=== PATIENT | female | born 1950 | race Caucasian/White ===

== ENCOUNTER → 2020-02-01 09:39 | Outpatient (CLI) | payer MEDICARE, OTHER, SELFPAY ==
[2020-02-02 09:36] LABS: COVID19 Sendout Not Detected (Not Detect)
== END ==
PROVIDERS: Visit Provider Physician Assistant
DX: Z11.59 Encounter for screening for other viral diseases (principal)
CPT/HCPCS: 87635

== ENCOUNTER 2020-02-04 06:14 | Day surgery (SDC) | payer MEDICARE, OTHER, SELFPAY ==
[2020-01-31 08:05] VITALS: BMI 22.2
[2020-02-04] VITALS (10 sets, daily range): BP systolic 126–163; BP diastolic 46–77; PULSE 56–72; RESP 12–48; TEMP 36.1–37.3; O2SAT 94–100; BMI 21.9
[2020-02-04] MEDS: LACTATED RINGERS 1,000 ML 42 ML IV (07:30)
--- NOTE | 2020-02-04 07:32 | PM.PREOP ---
Pre-operative Note COVID-19 COVID-19 status: Negative Result date/Date tested (Pos, Neg/Pending): 02/01/20 Interval Note History & Physical reviewed/Exam performed by Physician: Yes Changes to H&P: No
[2020-02-04] MEDS: CEFAZOLIN 2 GM/100 ML FROZ.PIGGY IV (08:00)
--- NOTE | 2020-02-04 08:17 | SUR.OPER ---
Lithotomy on padded OR bed, head on pillow, arms secured on padded arm boards at <90 degrees abduction. Legs secured in padded yellow fins stirrups.
[2020-02-04] MEDS: BUPIVACAINE 0.5% W/ EPI (PF) 30 ML VIAL INJ (08:37)
--- NOTE | 2020-02-04 08:54 | P.OP_ITS ---
Operative Date/Time/Diagnoses Date of procedure: 02/04/20 Time of procedure: 08:54 Pre-op diagnosis: Symptomatic vaginal wall prolapse post hysterectomy Post-op diagnosis: same Procedure & Clinicians Procedure: Anterior and posterior colporrhaphy Same procedure as scheduled: Yes Indications: Symptomatic vaginal wall prolapse post hysterectomy Surgeon: Eladia Olmedo [employer] Driver: Karen Mata Click Yes if Unassisted: No Anesthesia Type: General Operative Notes Findings: First-degree cystocele with second-degree rectocele. Vaginal cuff well supported Closure Type: primary Specimen(s): none sent Applied: catheter (Baltazar) and other (Vaginal packing) Estimated Blood Loss (mL): 20 Blood products transfused: none Procedure in detail: Patient was brought to the operating room where she underwent general anesthesia. She was placed in low Yellofin stirrups and prepped and draped in the usual sterile fashion. Warming was in place. 2 g of Ancef were in prior to beginning of the case. Pulsatile stockings were in place and functional. A check system was reviewed with the staff in the room prior to beginning the case. A Baltazar catheter was placed. The area of the cystocele and the rectocele was injected with a dilute solution of Marcaine with epinephrine. Incision was made over the cystocele with a scalpel. Dissection was undertaken laterally with sharp and blunt dissection. Plicating sutures of 0 Vicryl suture were placed. A small amount of vaginal tissue was removed. The vaginal incision was repaired with running 2 0 Vicryl suture. An incision was made over the rectocele with a scalpel. Dissection was undertaken laterally.. Plication sutures with 0 Vicryl were placed. A small amount of vaginal tissue was removed. The incision was closed with 2 0 Vicryl suture. Vaginal packing was placed. Patient went to recovery room in good condition. Complications: none Post-operative Condition: stable Disposition: Acute Care (Outpatient with bed) Plan for aftercare: Vaginal packing and Baltazar will be left in until a.m.. She will go home after postvoid residual in the morning
[2020-02-04] MEDS: KETOROLAC 30 MG/ML VIAL 15 MG IV (09:25)
[2020-02-04] MEDS: OXYCODONE/ACETAMINOPHEN 5/325 TABLET 1 TAB PO (09:27)
[2020-02-04] MEDS: LACTATED RINGERS 1,000 ML 100 ML IV (11:30)
--- NOTE | 2020-02-04 17:08 | PM.DS.1 ---
History of Present Illness History of Present Illness Date Patient Seen: 02/04/20 Time Patient Seen: 17:08 Date of Onset of Symptoms: 02/04/20 Chief complaint: OPB Narrative: Patient underwent an anterior and posterior repair today for vaginal wall prolapse post hysterectomy Discharge Providers Provider Discharge Date: 02/04/20 Primary care physician: Juan Antonio Zelaya DO Discharge provider: Eladia Olmedo MD Summary Hospital Course Discharge Diagnosis: Vaginal wall prolapse post hysterectomy status post anterior and posterior colporrhaphy Hospital Course: Patient had vaginal packing and a Baltazar catheter placed after surgery. These were removed after 6 hours. She has minimal bleeding. No pain. She passed her bladder trial. Status at Discharge Cognitive/behavioral status at discharge: oriented Functional status at discharge: independent ambulation Overall status at discharge: patient is progressing back to baseline Time Spent with Patient Time spent: Less than 30 minutes Exam Vital Signs (past 8 hours): - 02/04/20 09:30 02/04/20 10:00 02/04/20 10:30 Temperature 96.9 F L 96.9 F L 96.9 F L Pulse Rate 63 56 L 60 Respiratory Rate 16 16 16 Blood Pressure 163/71 H 140/61 127/64 Pulse Oximetry 94 100 100 02/04/20 11:30 02/04/20 12:30 02/04/20 15:45 Temperature 97.0 F L 97.0 F L 97.3 F L Pulse Rate 56 L 62 64 Respiratory Rate 16 16 16 Blood Pressure 126/53 L 128/66 135/62 Pulse Oximetry 100 100 100 Oxygen Delivery Method Room Air Oxygen Flow Rate 0 Narrative Exam Narrative: Abdomen is soft, nontender. Vaginal packing had minimal blood on it. Extremities without edema and nontender. Discharge Assessment & Plan Assessment and Plan Assessment: Patient is postoperative anterior and posterior colporrhaphy who was able to passed her bladder trial after packing and Baltazar removed. Plan of Treatment: Patient is discharged home to be followed up in 2 weeks. Patient is to call for fever, problems urinating, pain she is concerned about. Discharge Plan Discharge Plan Patient Disposition: Home Discharge Med Rec/Prescriptions Prescriptions: Continued multivitamin [Multiple Vitamins] 1 EACH tablet 1 tab PO QDAY Qty: 0 RF: 0 aspirin 81 MG tablet,chewable 81 mg PO QDAY Qty: 0 RF: 0 ascorbic acid (vitamin C) 500 MG tablet 1,000 mg PO QDAY Qty: 0 RF: 0 losartan 100 mg tablet 100 mg PO DAILY RF: 0 oxycodone-acetaminophen 5-325 mg tablet 2 tab PO Q4-6H PRN (Reason: pain) Qty: 20 RF: 0 carvedilol 3.125 mg tablet 3.125 mg PO BID RF: 0 rosuvastatin 40 mg tablet 40 mg PO DAILY RF: 0 Follow up/Referrals: Eladia Olmedo MD [Physician] - 2 Weeks Discharge Orders: Discharge (Order); Ordered 02/04/20 Ordered By: Eladia Olmedo Provider Discharge Instructions Diet: Regular Activity: nothing in vagina or lifting over 20 pounds for 6 weeks Skin/Wound/Dressing Care Report to your healthcare provider any signs of infection, such as:: chills, fever and increased pain Discharge Data Primary Care Provider: Juan Antonio Zelaya Attending Provider: Eladia Olmedo
--- NOTE | 2020-02-04 18:00 | PC.NURSE ---
Assumed care of pt at 1500. Dr. Olmedo in for rounding, villa and vag packing removed. Scant to moderate amt of bloody drainage to trina-pad. Voided 300 PVR 15ml, Dr. Olmedo notified, D/C to home ordered. IV removed. Discharge teaching provided. Self cath kit given to pt with written instructions. Pt verbalized understanding of all. Ambulated off unit with all personal belongings in stable condition.
== END 2020-02-04 17:45 | disposition home or self-care (01) ==
LOC: OR 06:19 → AC 06:23
PROVIDERS: PCP Family Medicine; Referring Provider Family Medicine; Visit Provider Specialist
PROC: (CPT 57260; principal; 2020-02-04 07:45)
DX: N99.3 Prolapse of vaginal vault after hysterectomy (principal); I10 Essential (primary) hypertension; E78.5 Hyperlipidemia, unspecified; I25.10 Atherosclerotic heart disease of native coronary artery without angina pectoris
CPT/HCPCS: 57260; J0690; J1100; J1885; J2250; J2405; J2704; J3010